=== PATIENT | female | born 1970 | race Caucasian/White ===

== ENCOUNTER 2018-04-26 14:00 | Emergency (ER) | payer OTHER ==
[~2018-04-26] VITALS: Ht 172.7 cm; Wt 93.7 kg
[2018-04-26 14:03] VITALS: Ht 172.7 cm; Wt 93.7 kg
[2018-04-26] MEDS ORDERED: LIDOCAINE 1% BUFFERED INJ 5 ML VIAL INFIL ONE (14:45)
--- NOTE | 2018-04-26 15:10 | DIAGNOSTIC IMAGING REPORT ---
L FINGER(S) MIN 2 VIEWS ROUTINE CLINICAL HISTORY: L 5th finger deformity COMPARISON: None FINDINGS: Note is made of dorsal medial dislocation of the middle phalanx of the left fifth finger with respect to the proximal femurs. Small adjacent bone fragments measure up to 2 mm. These likely reflect avulsed fracture fragments. IMPRESSION: Left fifth digit PIP joint dislocation with several small associated avulsed fracture fragments. Electronically signed by: Bill Figueroa M.D. 04/26/2018 3:09 PM Dictated Date/Time: 04/26/2018 3:08 PM
--- NOTE | 2018-04-26 15:11 | DIAGNOSTIC IMAGING REPORT ---
L FINGER(S) MIN 2 VIEWS ROUTINE CLINICAL HISTORY: L 5th finger PIP dislocation - s/p reduction COMPARISON: Left fifth finger radiograph April 26, 2018 at 2:13 PM. FINDINGS: Alignment of the left fifth digit PIP joint is anatomic status post reduction. A few small adjacent fracture fragments are unchanged. These measure up to 2 mm. IMPRESSION: Anatomic alignment of the left fifth digit PIP joint status post reduction. No change in a few adjacent small fracture fragments. Electronically signed by: Bill Figueroa M.D. 04/26/2018 3:10 PM Dictated Date/Time: 04/26/2018 3:09 PM
[2018-04-26 15:32] VITALS: BP 149/85; PULSE 116; TEMP 36.7; O2SAT 96
--- NOTE | 2018-04-26 16:34 | EMERGENCY ROOM VISIT NOTE ---
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 The patient reports that she attempted to catch a ball and her finger was jammed. The patient reports that she attempted to straighten it, but reports that although it looks straighter, she is still unable to flex the finger. She denies any persistent numbness of the fingertip. She also denies any pain extending into the hand or wrist region, and rates her pain a 4 out of 10. The patient is right-hand dominant. Review of Systems 10 system review was performed and was negative except for pertinent positives and negatives as indicated in history of present illness Past Medical/Surgical History Medical Problems: (1) No significant past medical history Surgical Problems: (1) No history of previous surgery Family History Unremarkable Social History Smoking Status: Never Smoker Alcohol Use: occasionally Marital Status: Housing Status: lives with family Occupation Status: employed Physical Exam Vital Signs Date Time Temp Pulse Resp B/P (MAP) Pulse Ox O2 Delivery O2 Flow Rate FiO2 04/26/18 15:32 36.7 116 20 149/85 96 04/26/18 14:03 36.7 116 20 149/85 96 Room Air Physical Exam CONSTITUTIONAL: Healthy and well nourished. Alert and oriented X 3 with positive affect. Patient does not appear in any acute distress. HEENT: Normocephalic, atraumatic. Pupils equal, round and reactive. NECK: Full active range of motion without discomfort. MUSCULOSKELETAL: Examination of the left fifth finger does not show any open wounds. She has a palpable deformity at the PIP joint. Capillary refill is less than 2 seconds. The patient has no tenderness to palpation of the ring finger or metacarpals. INTEGUMENTARY: No rash or other significant dermatologic conditions noted. NEUROLOGIC: Left fifth fingertip is sensory intact. Medical Decision & Procedures ER Provider Diagnostic Interpretation: My interpretation of initial left fifth finger x-rays shows a dorsal dislocation at the PIP joint with associated avulsion fragments over the volar plate. Radiologist report is as follows: L FINGER(S) MIN 2 VIEWS ROUTINE CLINICAL HISTORY: L 5th finger deformity COMPARISON: None FINDINGS: Note is made of dorsal medial dislocation of the middle phalanx of the left fifth finger with respect to the proximal femurs. Small adjacent bone fragments measure up to 2 mm. These likely reflect avulsed fracture fragments. IMPRESSION: Left fifth digit PIP joint dislocation with several small associated avulsed fracture fragments. My interpretation of post reduction x-ray shows good reduction with persistent avulsion fracture is noted at the volar plate. Radiologist report is as follows : L FINGER(S) MIN 2 VIEWS ROUTINE CLINICAL HISTORY: L 5th finger PIP dislocation - s/p reduction COMPARISON: Left fifth finger radiograph April 26, 2018 at 2:13 PM. FINDINGS: Alignment of the left fifth digit PIP joint is anatomic status post reduction. A few small adjacent fracture fragments are unchanged. These measure up to 2 mm. IMPRESSION: Anatomic alignment of the left fifth digit PIP joint status post reduction. No change in a few adjacent small fracture fragments. Procedure Joint reduction was performed under digital block anesthesia at the request of the patient. Using buffered 1% lidocaine without epinephrine, good digital block anesthesia was administered. After allowing adequate time for sedation, and with care to avoid any further trauma to the joint, the distal finger was hyperextended and carefully reduced. The joint immediately slid out again, and repeat reduction was performed. The patient was then able to flex and extend the finger without any other deformity or rotation. Collateral ligaments of the joint were intact. FDP and FDS function also appeared to be intact. Postreduction x-rays were performed, showing persistent avulsion fractures at the volar plate. Fourth and fifth fingers were betty taped and splinted in a flexed position. The patient tolerated the procedure well. ED Course Patient history and physical exam were performed. Nurse's notes were reviewed. Vital signs were reviewed, showing an elevated blood pressure of 149/85. The patient refused any initial analgesics. X-rays of the left fifth finger showed a PIP dorsal dislocation, along with several avulsion fractures near the volar plate.. Reduction was performed under digital block anesthesia. Postreduction x-rays showed good alignment with persistent small avulsion fracture is noted at the volar plate. The fingers were betty taped and splinted in a flexed position. The patient was provided copies of her x-rays and instructed to follow-up with orthopedics upon return home to [facility]. She was encouraged to intermittently apply ice and elevate the hand for swelling. Ibuprofen or Tylenol as needed for pain. The patient was happy with plan of care, voiced understanding of all discharge instructions, and denied any pain at the conclusion of my exam. Medical Decision Medication Reconcilliation Current Medication List: was personally reviewed by me Blood Pressure Screening Patient's blood pressure: Normal blood pressure Impression Primary Impression: Dislocation of proximal interphalangeal joint of left little finger, initial encounter Additional Impression: Left fifth finger avulsion fractures Departure Information Referrals No Doctor, Assigned (PCP) Patient Instructions My [facility] Problem Qualifiers
== END 2018-04-26 15:33 | disposition home or self-care (01) ==
LOC: C.EDB 14:01 → C.EDD 15:33
DX: S63.287A Dislocation of proximal interphalangeal joint of left little finger, initial encounter (principal); S62.617A Displaced fracture of proximal phalanx of left little finger, initial encounter for closed fracture; W21.00XA Struck by hit or thrown ball, unspecified type, initial encounter